=== PATIENT | male | born 1995 | race Hispanic/Latino ===

== ENCOUNTER 2024-02-14 12:15 | Emergency (ER) | payer SELFPAY ==
[2024-02-14 12:36] VITALS: BP 117/67; PULSE 62; RESP 16; TEMP 36.5; O2SAT 99
--- NOTE | 2024-02-14 13:45 | PC.NURSE ---
Pt states 1 1/2 month was bit by a tic on right fierro & left hip. Pt has developed half dollar size open wound to tic bite site on right lower leg & quater size open wound to left hip @ bite site. States 3 days ago got a hair cut after the hair cut developed red raised rash to scalp, neck, trunk. Scalp lesions yellow & crusted, trunk & neck lesions raised red scaly. Pt c/o generalize itching.
[2024-02-14 14:11] LABS: Basophils Absolute Auto 0.1 K/mm3 (0.0-0.1); Basophils Percent Auto 0.7 % (0.2-1.2); Eosinophils Absolute Auto 0.2 K/mm3 (0-0.3); Eosinophils Percent Auto 2.6 % (0-4.4); Hematocrit 44.7 % (42.0-52.0); Hemoglobin 15.6 g/dL (14.0-18.0); Immature Granulocyte Absolute 0.01 K/mm3 (0.00-0.031); Immature Granulocyte Percent A 0.1 % (0-0.5); Lymphocytes Absolute Auto 2.12 K/mm3 (0.9-3.2); Lymphocytes Percent Auto 24.4 % (18.3-44.2); Mean Corpuscular HGB Conc 34.9 g/dl (32-36); Mean Corpuscular Hemoglobin 30.4 pg (26-34); Mean Platelet Volume 11.3 fl (7.4-10.4); Monocytes Absolute Auto 0.7 K/mm3 (0.1-0.6); Monocytes Percent Auto 8.4 % (2.6-8.5); Neutrophils Absolute Auto 5.5 K/mm3 (1.3-6.7); Neutrophils Percent Auto 63.8 % (45.5-73.1); Platelet Count Result 203 k/mm3 (150-375); Red Blood Count 5.14 M/mm3 (4.6-6.20); White Blood Count 8.7 K/mm3 (4.5-10.0)
[2024-02-14 14:22] LABS: Alanine Aminotransferase 16 U/L (6-50); Albumin Level 4.9 g/dL (3.5-5.1); Alkaline Phosphatase 65 U/L (38-126); Anion Gap 8 mmol/L (4-12); Aspartate Amino Transferase 24 U/L (17-59); Bilirubin,Total 0.8 mg/dL (0.2-1.3); Blood Urea Nitrogen 14 mg/dL (9-20); Calcium 9.7 mg/dL (8.4-10.2); Carbon Dioxide 28 mmol/L (22-30); Chloride 105 mmol/L (98-107); Estimated CRCL calculation 114 ml/min; Estimated Glomerular Filt Rate > 60; Glucose 97 mg/dL (65-110); Sodium 141 mmol/L (137-145)
[2024-02-14 14:23] LABS: Lactic Acid Reflex 1.3 mmol/L (0.7-2.0)
--- NOTE | 2024-02-14 15:04 | ED.GENADULT ---
HPI - General Adult General Chief complaint: Skin/Abscess/Foreign Body Stated complaint: rash Time Seen by Provider: 02/14/24 14:34 History of Present Illness HPI narrative: 28-year-old male presents to the emergency department for evaluation for a rash on his leg and on his neck. Patient states approximately 1.5 months ago he was bit by a tick on the right leg and has since had a oozing wound on his right leg. Patient states few days ago he had a haircut and ultimately had rash breakout his neck as well. Patient denies any fevers but states he has had a lot itching. Related Data Allergies Allergy/AdvReac Type Severity Reaction Status Date / Time No Known Allergies Allergy Verified 02/14/24 14:06 Review of Systems Review of Systems: All systems reviewed & are unremarkable except as noted in HPI and below Exam Narrative: APPEARANCE: Well appearing, no pain, no distress, well-nourished. HEAD: normocephalic, atraumatic. EYES: PERRLA/EOMI, conjunctivae clear. NOSE: Normal no drainage EARS:TMS clear with good light reflex. THROAT: Pharynx clear, no exudate. NECK: Supple. No adenopathy, no masses. RESPIRATORY: Airway patent, respirations nonlabored. Clear to auscultation bilaterally, no rales, rhonchi, wheezing. CARDIOVASCULAR: Regular rate and rhythm without murmurs rubs or gallops. ABDOMINAL: Soft, nontender, nondistended, normal bowel sounds MUSCULOSKELETAL: Moves all extremities. Strength/ROM intact, No edema, No calf tenderness. NEURO: Alert. Cranial nerves II through XII intact. Good gait. Good coordination SKIN: folliculitis on the back of neck and impetigo appearing lesion right fierro Course Vital Signs Vital signs: Vital Signs Temperature 97.7 F 02/14/24 12:36 Pulse Rate 62 02/14/24 12:36 Respiratory Rate 16 02/14/24 12:36 Blood Pressure 117/67 02/14/24 12:36 Pulse Oximetry 99 02/14/24 12:36 Oxygen Delivery Room Air 02/14/24 12:36 Temperature 98.2 F 02/14/24 15:40 Pulse Rate 61 02/14/24 15:40 Respiratory Rate 18 02/14/24 15:40 Blood Pressure 107/69 02/14/24 15:40 Pulse Oximetry 99 02/14/24 15:40 Oxygen Delivery Room Air 02/14/24 12:36 Medical Decision Making MDM Narrative Medical decision making narrative: 28-year-old male present to the emergency department for evaluation for wound to leg and rash to the neck and body. Infection is consistent with impetigo and folliculitis. Patient will be started on doxycycline to also cover for potential tick bite. No erythema migrans Vital Signs Vital Signs: Vital Signs Temperature 97.7 F 02/14/24 12:36 Pulse Rate 62 02/14/24 12:36 Respiratory Rate 16 02/14/24 12:36 Blood Pressure 117/67 02/14/24 12:36 Pulse Oximetry 99 02/14/24 12:36 Oxygen Delivery Room Air 02/14/24 12:36 Temperature 98.2 F 02/14/24 15:40 Pulse Rate 61 02/14/24 15:40 Respiratory Rate 18 02/14/24 15:40 Blood Pressure 107/69 02/14/24 15:40 Pulse Oximetry 99 02/14/24 15:40 Oxygen Delivery Room Air 02/14/24 12:36 Lab Data 02/14/24 14:05 02/14/24 14:05 Labs: Lab Results 02/14/24 Range/Units 14:05 WBC 8.7 (4.5-10.0) K/mm3 RBC 5.14 (4.6-6.20) M/mm3 Hgb 15.6 (14.0-18.0) g/dL Hct 44.7 (42.0-52.0) % MCV 87.0 (80-100) fl MCH 30.4 (26-34) pg MCHC 34.9 (32-36) g/dl RDW 13.0 (11.5-14.5) % Plt Count 203 (150-375) k/mm3 MPV 11.3 H (7.4-10.4) fl Immature Gran % (Auto) 0.1 (0-0.5) % Neut % (Auto) 63.8 (45.5-73.1) % Lymph % (Auto) 24.4 (18.3-44.2) % Davidson % (Auto) 8.4 (2.6-8.5) % Eos % (Auto) 2.6 (0-4.4) % Baso % (Auto) 0.7 (0.2-1.2) % Lymph # (Auto) 2.12 (0.9-3.2) K/mm3 Davidson # (Auto) 0.7 H (0.1-0.6) K/mm3 Eos # (Auto) 0.2 (0-0.3) K/mm3 Baso # (Auto) 0.1 (0.0-0.1) K/mm3 Abs Immat Gran (auto) 0.01 (0.00-0.031) K/mm3 Absolute Neuts (auto) 5.5 (1.3-6.7) K/mm3 Absolute Nucleated RBC 0.000 (0.0-0.012)
--- NOTE | 2024-02-14 15:39 | PC.NURSE ---
wound culture obtained from wound on right lower leg.
[2024-02-14 15:40] VITALS: BP 107/69; PULSE 61; RESP 18; TEMP 36.8; O2SAT 99
== END 2024-02-14 15:44 | disposition home or self-care (01) ==
PROVIDERS: Emergency Provider Emergency Medicine
DX: L01.00 Impetigo, unspecified (principal); L73.9 Follicular disorder, unspecified
CPT/HCPCS: 36415; 80053; 83605; 85025; 87070; 87075; 87205; 99283

== ENCOUNTER 2025-06-26 10:25 | Emergency (ER) | payer SELFPAY ==
[2025-06-26 10:39] VITALS: BP 109/72; PULSE 78; RESP 16; TEMP 36.7; O2SAT 98
--- NOTE | 2025-06-26 10:44 | PC.NURSE ---
COVID/FLU/RSV swab sent to lab.
--- OUTSIDE RECORDS SUMMARY | 2025-06-26 11:16 | XMS_ITS | Clinical Summary ---
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 Active Social History Tobacco Use Types Packs/Day Years Used Date Smoking Tobacco: Every Day Cigarettes Smokeless Tobacco: Never Alcohol Use Standard Drinks/Week Comments Never 0 (1 standard drink = 0.6 oz pur e alcohol) Sex and Gender Information Value Date Recorded Sex Assigned at Not on file Legal Sex Male 10:27 PM CDT Gender Identity Not on file Sexual Orientation Not on file Last Filed Vital Signs Vital Sign Reading Time Taken Comments Blood Pressure 105/64 05/10/2020 4:41 PM CDT Pulse 55 05/10/2020 4:41 PM CDT Temperature 36.6 C (97.8 F) 05/10/2020 4:41 PM CDT Respiratory Rate 16 05/10/2020 3:05 PM CDT Oxygen Saturation 100% 05/10/2020 4:41 PM CDT Inhaled Oxygen Concentration - - Weight 68 kg (150 lb) 05/10/2020 3:05 PM CDT Height 170.2 cm (5' 7) 05/10/2020 3:05 PM CDT Body Mass Index 23.49 05/10/2020 3:05 PM CDT Plan of Treatment Health Maintenance Due Date Last Done Comments DTAP/TDAP/TD VACCINES (1 - Tdap) 2016 HEPATITIS B VACCINES (1 of 3 - 19+ 3-dose series) 05/18 HPV VACCINES (1 - 3-dose SCDM series) 2024 INFLUENZA VACCINE (#1) 2025
[2025-06-26 11:24] LABS: Influenza A QL RT-PCR Negative (Negative); Influenza B QL RT-PCR Negative (Negative); RSV RNA, RT-PCR Negative (Negative); SARS-CoV-2 RNA PCR Negative (Negative)
--- NOTE | 2025-06-26 12:33 | ED_ITS ---
HPI - URI/Sore Throat General Chief Complaint: Upper Respiratory Infection Stated Complaint: UPPER RESP X1WEEK Time Seen by Provider: 06/26/25 12:08 History of Present Illness HPI Narrative: This is a 30-year-old male history of unspecified cardiac disorder who presents to the ED for like symptoms. Patient states for the past 5 days, he has been having a dry cough, congestion, sore throat, diffuse body aches. He states that he has multiple family members that had similar symptoms. He has had subjective fevers but has not checked his temperature. Denies rashes, chest pain, shortness of breath, nausea vomiting. Related Data Allergies Allergy/AdvReac Type Severity Reaction Status Date / Time No Known Allergies Allergy Verified 06/26/25 10:41 Review of Systems Review of Systems: Gen.: As per HPI Eyes: Denies eye pain or visual change ENT: As per HPI Respiratory: Denies shortness of breath or cough CV: Denies chest pain or palpitations GI: Denies abdominal pain nausea, emesis or diarrhea denies burning, urgency, frequency or hematuria Musculoskeletal: Denies back pain or muscle pain Neuro: Denies numbness, tingling, weakness or focal weakness Skin: Denies rash Except as documented, all other systems reviewed and negative Exam Narrative: APPEARANCE: No acute distress, nontoxic, resting in bed EYES: EOMI HEENT: Normocephalic, atraumatic, OMM. Mild posterior oropharyngeal erythema without exudates. RESPIRATORY: No respiratory distress Clear to auscultation bilaterally with no rhonchi wheezing or rales. CARDIOVASCULAR: Regular rate and rhythm without murmurs rubs or gallops. ABDOMINAL: Soft, nontender, nondistended, no rebound or guarding MUSCULOSKELETAl: Moves all extremities. No clubbing, cyanosis or edema. NEURO: Awake and alert. Following commands, speech normal, no focal deficits SKIN:: Warm, dry. No rashes lesions or abrasions PSYCHIATRIC: Normal affect/mood, Course Vital Signs Vital signs: Vital Signs Temperature 98.1 F 06/26/25 10:39 Pulse Rate 78 06/26/25 10:39 Respiratory Rate 16 06/26/25 10:39 Blood Pressure 109/72 06/26/25 10:39 Pulse Oximetry 98 06/26/25 10:39 Oxygen Delivery Room Air 06/26/25 10:39 Temperature 98.1 F 06/26/25 10:39 Pulse Rate 78 06/26/25 10:39 Respiratory Rate 16 06/26/25 10:39 Blood Pressure 109/72 06/26/25 10:39 Pulse Oximetry 98 06/26/25 10:39 Oxygen Delivery Room Air 06/26/25 12:06 MDM - URI/Sore Throat MDM Narrative Medical decision making narrative: 30-year-old male who presents to the ED for flu-like symptoms. On initial evaluation, patient was in no acute distress afebrile, hemodynamically stable. Heart and lungs clear. Abdomen soft nontender. He did have some posterior oropharyngeal erythema repaired COVID/flu/RSV was negative. Suspect the patient does have a viral syndrome of another virus. He was educated on Tylenol Naprosyn use. He will be sent prescription for Medrol Dosepak. He is advised follow-up with the [facility] to establish care. Patient was agreeable to this plan. Given strict return precautions. Differential Diagnosis Differential diagnosis: Likely upper respiratory infection, sinusitis, viral infection, bronchitis and influenza Medical Records Attestation: I reviewed the patient's medical records. Lab Data Attestation: I reviewed the patient's lab results. Labs: Lab Results 06/26/25 Range/Units 10:42 Influenza A (RT-PCR) Negative (Negative) Influenza B (RT-PCR) Negative (Negative) RSV (RT-PCR) Negative (Negative) SARS-CoV-2 RNA (RT-PCR) Negative (Negative) Discharge Plan Discharge Clinical Impression: Acute viral syndrome Patient Disposition: Home Condition: Stable Instructions: Antibiotic Form, Viral Syndrome (ED) Additional Instructions: He tested negative for COVID/flu/RSV. He likely another virus causing her sym ptoms. You may take Tylenol and ibuprofen for your symptoms. You were also given a prescription for a Medrol Dosepak, take this as prescribed. Your given a referral to Dr. Almodovar, [facility], to establish care, follow-up in the next week for re-evaluation. Return the ED for any new or worsening symptoms. For pain, discomfort or temperature greater than or equal to 100.8 ?F please alternate the following 2 medications as needed. First medication- acetaminophen/Tylenol- 1000mg every 6-8 hours as needed for above indications. Second medication- ibuprofen/Motrin-600mg every 6-8 hours as needed for above indication. Patient Language: French Prescriptions: New methylprednisolone [Medrol (Daljit)] 4 mg tablets,dose pack See Rx Instructions .ROUTE .COMPLEX Qty: 21 0RF Rx Instructions: orally per package directions No Action doxycycline hyclate 100 mg tablet 100 mg PO BID 14 Days Qty: 28 0RF Follow-up/Referrals: PHYSICIAN,GATHERING MACHINE SETTER [Primary Care Provider, Internal Medicine] Alistair Almodovar MD [Physician, Family Practice] Stand Alone Forms: Work/School Release IP
--- OUTSIDE RECORDS SUMMARY | 2025-06-26 13:09 | XMS_ITS | Clinical Summary ---
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
== END 2025-06-26 12:52 | disposition home or self-care (01) ==
PROVIDERS: Emergency Medicine; Emergency Provider Student in an Organized Health Care Education/Training Program
DX: B34.9 Viral infection, unspecified (principal); Z20.822 Contact with and (suspected) exposure to COVID-19
CPT/HCPCS: 87637; 99283